=== PATIENT | male | born 1980 | race Caucasian/White ===

== ENCOUNTER 2020-07-22 20:37 | Emergency (ER) | payer OTHER ==
[~2020-07-22] VITALS: Ht 170.2 cm; Wt 124.7 kg
[2020-07-22 21:48] VITALS: Ht 170.2 cm; Wt 124.7 kg
[2020-07-22] MEDS ORDERED: ERYTHROMYCIN OPT1 GM RIGHT EYE (22:41)
[2020-07-23 00:30] VITALS: BP 136/88
== END 2020-07-23 01:01 | disposition home or self-care (01) ==
LOC: D.ER 20:37
DX: S00.211A Abrasion of right eyelid and periocular area, initial encounter (principal); X58.XXXA Exposure to other specified factors, initial encounter